=== PATIENT | female | born 1990 | race Caucasian/White ===

== ENCOUNTER 2017-02-05 09:10 | Emergency (ER) | payer OTHER, BC ==
[~2017-02-05] VITALS: Ht 175.3 cm; Wt 88.0 kg
[~2017-02-05 09:10] MED LIST: COLACE100 MG PO; COMPLETENATE T1 EACH PO; ENDOCET 5-3251 EACH PO; IBUPROFEN800 MG PO; IRON325 MG PO; METHADONE 22 MG/1 ML PO; SYNTHROID25 MCG PO; ZOFRAN8 MG PO
[2017-02-05] MEDS ORDERED: ROXICODONE5 MG PO (10:42)
[2017-02-05 11:30] VITALS: BP 134/93
[2017-02-06] MEDS ORDERED: DURAGESIC25 MCG TD ×2 (19:51→19:54)
[2017-02-06] MEDS ORDERED: LIDODERM 5% P1 PATCH TD (19:51)
== END 2017-02-05 11:30 | disposition home or self-care (01) ==
LOC: EME 09:10
DX: M54.42 Lumbago with sciatica, left side (principal)
CPT/HCPCS: 99281; 99283; J2270

== ENCOUNTER 2017-02-06 14:41 | Emergency (ER) | payer OTHER, BC ==
[~2017-02-06] VITALS: Ht 175.3 cm; Wt 88.9 kg
[~2017-02-06 14:41] MED LIST changes: +ROXICODONE5 MG PO
[2017-02-06] MEDS ORDERED: LIDODERM 5% P1 PATCH TD (19:51)
[2017-02-06] MEDS ORDERED: DURAGESIC25 MCG TD ×2 (19:51→19:54)
[2017-02-06 20:43] VITALS: BP 120/74
== END 2017-02-06 20:44 | disposition home or self-care (01) ==
LOC: EME 14:41
DX: O26.891 Other specified pregnancy related conditions, first trimester (principal); M43.16 Spondylolisthesis, lumbar region; S39.012A Strain of muscle, fascia and tendon of lower back, initial encounter; V40 Car occupant injured in collision with pedestrian or animal; Z3A.13 13 weeks gestation of pregnancy
CPT/HCPCS: 72110; 99281; 99284; J3010

== ENCOUNTER 2017-08-23 07:23 | Inpatient (IN) | payer BC ==
[2017-08-23] VITALS (20 sets, daily range): BP systolic 118–151; BP diastolic 65–93
[~2017-08-23] VITALS: Ht 175.3 cm; Wt 107.9 kg
[~2017-08-23 07:23] MED LIST changes: +DURAGESIC25 MCG TD; +LIDODERM 5% P1 PATCH TD
[2017-08-23 08:53] LABS: BASOPHIL (%) 0.3 % (0-1); EOSINOPHIL (%) 0.7 % (0-5); EOSINOPHIL COUNT 0.1 K/uL (0-0.3); HEMATOCRIT 35.1 % (36.0-46.0); HEMOGLOBIN 11.9 G/DL (11.9-15.5); LYMPHOCYTE (%) 17.7 % (15-42); LYMPHOCYTE COUNT 1.8 K/uL (1.0-2.8); MCH 29.3 PG (29.0-34.0); MCHC 33.9 G/DL (30.0-36.0); MCV 86.5 FL (83-99); MONOCYTE (%) 6.9 % (3-12); MONOCYTE COUNT 0.7 K/uL (0-0.8); NEUTROPHIL (%) 73.4 % (45-76); NEUTROPHIL COUNT 7.6 K/uL (1.8-6.4); PLATELET COUNT 193 K/uL (156-360); RBC DIS.WIDTH-CV 13.2 % (11.8-14.6); RBC DIS.WIDTH-SD 41.2 % (39-53); RED BLOOD COUNT 4.06 M/uL (3.80-5.20); WHITE BLOOD COUNT 10.3 K/uL (4.1-10.2)
[2017-08-23] MEDS ORDERED: IBUPROFEN800 MG PO (18:20)
[2017-08-24 07:15] VITALS: BP 138/83
[2017-08-24 13:30] VITALS: BP 100/56
== END 2017-08-25 13:47 | disposition home or self-care (01) | DRG 775 ==
LOC: LDRP-OP 07:23 → 2WEST 07:24 → LDRP-OP 09-11 09:47
PROVIDERS: Obstetrics & Gynecology Gynecology
PROC: 10907ZC Drainage of Amniotic Fluid, Therapeutic from Products of Conception, Via Natural or Artificial Opening (ICD-10-PCS; principal; 2017-08-23)
PROC: 3E0R3BZ Introduction of Anesthetic Agent into Spinal Canal, Percutaneous Approach (ICD-10-PCS; principal; 2017-08-23)
PROC: 00HU33Z Insertion of Infusion Device into Spinal Canal, Percutaneous Approach (ICD-10-PCS; principal; 2017-08-23)
PROC: 0U7C7ZZ Dilation of Cervix, Via Natural or Artificial Opening (ICD-10-PCS; principal; 2017-08-23)
PROC: 10E0XZZ Delivery of Products of Conception, External Approach (ICD-10-PCS; principal; 2017-08-23)
PROC: 3E033VJ Introduction of Other Hormone into Peripheral Vein, Percutaneous Approach (ICD-10-PCS; principal; 2017-08-23)
PROC: 0KQM0ZZ Repair Perineum Muscle, Open Approach (ICD-10-PCS; principal; 2017-08-23)
DX: O48.0 Post-term pregnancy (principal); O70.1 Second degree perineal laceration during delivery; O69.81X0 Labor and delivery complicated by cord around neck, without compression, not applicable or unspecified; O99.284 Endocrine, nutritional and metabolic diseases complicating childbirth; E03.9 Hypothyroidism, unspecified; E28.2 Polycystic ovarian syndrome; Z3A.41 41 weeks gestation of pregnancy; Z37.0 Single live birth
CPT/HCPCS: 85025; C1755; J0595; J2795; J3010; J7120; S0020